=== PATIENT | male | born 1950 | race Caucasian/White ===

== ENCOUNTER 2018-07-28 18:02 | Inpatient (IN) | payer OTHER ==
[~2018-07-28] VITALS: Ht 182.9 cm; Wt 83.5 kg
[~2018-07-28 18:02] MED LIST: ADVIL200 MG PO; ALPRAZOLAM0.25 M1 PO; ALPRAZOLAM0.25 M2 PO; ALPRAZOLAM0.5 MG PO; ASPIR-TRIN325 M1 PO; ASPIRIN325 MG PO; Aspirin PO; BUPROPION XL150 MG PO; CRESTOR10 MG PO; CRESTOR20 MG PO; ENDOCET 5-3251 EACH PO; FIORICET,ESG1 TABLET PO; FLONASE16 G1 BOTH NARES; HYDROCHLOROTH12.5 M3 PO; IBUPROFEN800 MG PO; IMDUR30 MG PO; ISORDIL,SORBITR40 M3 PO; ISOSORBIDE DINI10 MG PO; LAMICTAL XR200 MG PO; LISINOPRIL20 MG PO; LOPRESSOR50 MG PO; LOVAZA1 GM PO; LOW DOSE ASPIRI81 M1 PO; METHOCARBAMOL500 MG PO; NAPROXEN500 M1 PO; NASAL RELIEF30 ML BOTH NARES; NITROGLYCERIN0.4 MG SL; NITROSTAT,NITR0.4 M1 SL; NORVASC5 MG PO; OXYCODONE-ACET1 EACH PO; PEPCID20 MG PO; PERCOCET 7.51 TABLET PO; PLAVIX75 MG PO; PRAVASTATIN SOD80 MG PO; PROTONIX40 MG PO; ROXICODONE5 MG PO; SIMVASTATIN20 M1 PO; TRAZODONE HCL50 MG PO; TYLENOL REGULA325 MG PO; WELLBUTRIN XL150 MG PO
[2018-07-28 18:29] LABS: BASOPHIL (%) 0.5 % (0-1); BASOPHIL COUNT 0.1 K/uL (0-0.1); EOSINOPHIL (%) 1.9 % (0-5); EOSINOPHIL COUNT 0.2 K/uL (0-0.3); HEMATOCRIT 40.3 % (38.0-50.0); HEMOGLOBIN 14.3 G/DL (12.5-16.6); IMMATURE GRANULOCYTE (%) 0.3 % (0.0-0.7); LYMPHOCYTE COUNT 4.3 K/uL (1.0-2.8); MCH 31.4 PG (29.0-34.0); MCHC 35.5 G/DL (30.0-36.0); MCV 88.6 FL (86-99); MONOCYTE (%) 8.3 % (3-12); PLATELET COUNT 288 K/uL (156-360); RBC DIS.WIDTH-SD 38.6 % (39-53); RED BLOOD COUNT 4.55 M/uL (4.00-5.50); WHITE BLOOD COUNT 11.6 K/uL (4.1-10.2)
[2018-07-28 18:40] LABS: AMYLASE 28 IU/L (1-118); CHLORIDE 105 mEq/L (99-109); POTASSIUM 4.3 mEq/L (3.7-5.4); SODIUM 137 mEq/L (136-147)
[2018-07-28 18:42] LABS: GLUCOSE 110 mg/dL (70-99)
[2018-07-28 18:45] LABS: CREATININE 1.4 mg/dL (0.6-1.3); GFR ESTIMATE (CALCULATED) 54 mL/min/ (58.99-99999); SERUM ETHYL ALCOHOL < 10 mg/dL
[2018-07-28 18:46] LABS: UREA NITROGEN (BUN) 21 mg/dL (9-23)
[2018-07-28 18:47] LABS: PTT 21.1 SEC (25-37)
[2018-07-28 18:52] LABS: TROP-I INTERPRETATION NEGATIVE; TROPONIN-I < 0.01 ng/mL (0.0-0.30)
[2018-07-28 19:30] LABS: LIPASE 23 U/L (1.0-51.0)
[2018-07-28 20:32] VITALS: BP 132/79
[2018-07-28 21:02] VITALS: BP 113/74
[2018-07-28 22:01] VITALS: BP 134/77
[2018-07-28 23:01] VITALS: BP 111/70
[2018-07-29] VITALS (15 sets, daily range): BP systolic 87–148; BP diastolic 51–85
[2018-07-29 05:26] LABS: BASOPHIL (%) 0.3 % (0-1); EOSINOPHIL COUNT 0.1 K/uL (0-0.3); HEMATOCRIT 36.9 % (38.0-50.0); HEMOGLOBIN 12.8 G/DL (12.5-16.6); IMMATURE GRANULOCYTE (%) 0.4 % (0.0-0.7); LYMPHOCYTE (%) 29.3 % (15-42); MCH 31.4 PG (29.0-34.0); MCHC 34.7 G/DL (30.0-36.0); MCV 90.7 FL (86-99); MONOCYTE (%) 8.9 % (3-12); MONOCYTE COUNT 0.6 K/uL (0-0.8); NEUTROPHIL (%) 59.1 % (45-76); NEUTROPHIL COUNT 4.1 K/uL (1.8-6.4); PLATELET COUNT 221 K/uL (156-360); RBC DIS.WIDTH-SD 39.5 % (39-53); RED BLOOD COUNT 4.07 M/uL (4.00-5.50)
[2018-07-29 06:05] LABS: CHLORIDE 107 MEQ/L (99-109); CREATININE 1.2 MG/DL (0.6-1.3); GFR ESTIMATE (CALCULATED) > 59 mL/min/ (58.99-99999); GLUCOSE 88 mg/dL (70-99); POTASSIUM 4.3 MEQ/L (3.7-5.4); SODIUM 140 MEQ/L (136-147); UREA NITROGEN (BUN) 20 mg/dL (9-23)
[2018-07-29 06:19] LABS: TROP-I INTERPRETATION INDETERMINATE; TROPONIN-I 0.33 ng/mL (0.0-0.30)
[2018-07-29 12:29] LABS: TROP-I INTERPRETATION POSITIVE; TROPONIN-I 0.73 ng/mL (0.0-0.30)
[2018-07-29 18:42] LABS: TROP-I INTERPRETATION POSITIVE; TROPONIN-I 1.02 ng/mL (0.0-0.30)
[2018-07-30 01:00] VITALS: BP 127/77
[2018-07-30 05:35] VITALS: BP 150/84
[2018-07-30 06:57] VITALS: BP 122/62
[2018-07-30] MEDS ORDERED: ATORVASTATIN CA40 MG PO (11:36)
[2018-07-30] MEDS ORDERED: LOPRESSOR25 MG PO (11:39)
== END 2018-07-30 12:14 | disposition home or self-care (01) | DRG 247 ==
LOC: EME 18:02 → 4WEST 19:02 → SDC 19:08 → CATH 19:08 → 4WEST 20:25 → CANRESERV 07-29 16:28 → ENRESERV 07-29 16:28 → CANRESERV 07-29 16:29 → ENRESERV 07-29 17:01 → 4EAST 07-29 19:04 → ENPENDDIS 07-30 → 4EAST 07-30 12:14
PROVIDERS: Emergency Medicine; Internal Medicine Cardiovascular Disease
PROC: B2151ZZ Fluoroscopy of Left Heart using Low Osmolar Contrast (ICD-10-PCS; principal; 2018-07-29)
PROC: 027135Z Dilation of Coronary Artery, Two Arteries with Two Drug-eluting Intraluminal Devices, Percutaneous Approach (ICD-10-PCS; principal; 2018-07-29)
PROC: B2111ZZ Fluoroscopy of Multiple Coronary Arteries using Low Osmolar Contrast (ICD-10-PCS; principal; 2018-07-29)
PROC: 4A023N7 Measurement of Cardiac Sampling and Pressure, Left Heart, Percutaneous Approach (ICD-10-PCS; principal; 2018-07-29)
DX: I21.19 ST elevation (STEMI) myocardial infarction involving other coronary artery of inferior wall (principal); I25.10 Atherosclerotic heart disease of native coronary artery without angina pectoris; G89.29 Other chronic pain; I10 Essential (primary) hypertension; I77.1 Stricture of artery; M54.5 Low back pain; Z85.828 Personal history of other malignant neoplasm of skin; Z79.82 Long term (current) use of aspirin; Z79.02 Long term (current) use of antithrombotics/antiplatelets
CPT/HCPCS: 71045; 80048; 81003; 82150; 83690; 84484; 85025; 85347; 85610; 85730; 86850; 86900; 86901; 87641; 93005; 93306; 99281; 99284; C1725; C1769; C1874; C1887; G0480; J0461; J1644; J2250; J2405; J3010; J3246; J7030